=== PATIENT | female | born 1975 | race Two or more races ===

== ENCOUNTER 2024-12-04 14:20 | Emergency (ER) | payer OTHER ==
[~2024-12-04] VITALS: Ht 160 cm; Wt 72.3 kg
[2024-12-04 14:21] VITALS: TEMP 98.1
[2024-12-04] MEDS: ACETAMINOPHEN/CODEINE 300-30 MG TABLET PO ONE (17:20)
[2024-12-04] MEDS: IBUPROFEN 600 MG TABLET PO ONE (17:21)
[2024-12-04 18:00] VITALS: BP 120/68; PULSE 74; RESP 17; O2SAT 97
[2024-12-04] MEDS ORDERED: IBUP-1554 PO (18:22)
[2024-12-04] MEDS ORDERED: ACET-66 PO (18:22)
== END 2024-12-04 19:08 | disposition home or self-care (01) ==
LOC: EMS 14:20
DX: S13.9XXA Sprain of joints and ligaments of unspecified parts of neck, initial encounter (principal); S00.93XA Contusion of unspecified part of head, initial encounter; X58.XXXA Exposure to other specified factors, initial encounter; Y93.89 Activity, other specified; Y92.89 Other specified places as the place of occurrence of the external cause; Y99.8 Other external cause status
CPT/HCPCS: 72040; 99283